=== PATIENT | male | born 1950 | race Caucasian/White ===

== ENCOUNTER 2021-11-12 00:25 | Inpatient (IN) | payer OTHER, MEDICARE, SELFPAY ==
[~2021-11-12] VITALS: Ht 182.9 cm; Wt 113.4 kg
[2021-11-12 00:25] VITALS: BP_SYST 174
[2021-11-12] MEDS ORDERED: DIPHENHYDRAMINE INJ 50 MG/ML VIAL IM ONE (00:30)
[2021-11-12] MEDS ORDERED: HALOPERIDOL LACTATE 5 MG/ML VIAL IM ONE (00:30)
--- NOTE | 2021-11-12 01:25 | NUR ---
Patient still in the ambulance with BLS crew, awaiting available bed. Per report, patient started to be calm and cooperates with staff.
[2021-11-12 02:04] LABS: ANION GAP 13 (5-15); CALCIUM 8.5 mg/dL (8.4-11.0); CHLORIDE 102 mmol/L (98-107); CREATININE 1.12 mg/dL (0.55-1.30); GLUCOSE 369 mg/dL (70-99); POTASSIUM 3.3 mmol/L (3.5-5.1); SODIUM SERUM 140 mmol/L (136-145); UREA NITROGEN, BLOOD 16 mg/dL (8-21)
[2021-11-12 02:08] LABS: ALANINE AMINOTRANSFERASE 148 U/L (12-78); ALBUMIN 3.6 g/dL (3.4-4.8); ASPARTATE AMINOTRANSFERASE 66 U/L (10-37); TOTAL BILIRUBIN 0.2 mg/dL (0.0-1.0)
[2021-11-12 02:37] LABS: BASOPHILS % (AUTO) 0.6 % (0.0-2.0); EOSINOPHILS # (AUTO) 0.1 K/uL (0.0-0.4); EOSINOPHILS % (AUTO) 1.5 % (0.0-4.0); HEMATOCRIT 42.4 % (36-54); HEMOGLOBIN 14.3 g/dL (14.0-18.0); LYMPHOCYTES # (AUTO) 0.7 K/uL (1.0-5.5); LYMPHOCYTES % (AUTO) 12.6 % (20.5-51.5); MEAN CORPUSCULAR HEMOGLOBIN 31 pg (27-31); MEAN CORPUSCULAR HGB CONC 34 % (32-36); MEAN CORPUSCULAR VOLUME 93 fL (79.0-98.0); MONOCYTES # (AUTO) 0.5 K/uL (0.0-1.0); MONOCYTES % (AUTO) 9.1 % (1.7-9.3); NEUTROPHILS # (AUTO) 4.1 K/uL (1.8-7.7); NEUTROPHILS % (AUTO) 76.2 % (40.0-70.0); PLATELET COUNT (AUTO) 199 K/uL (130-430); RED BLOOD CELL COUNT(AUTO) 4.55 MIL/uL (4.2-6.2); RED CELL DISTRIBUTION WIDTH 13.1 % (9.0-15.0); WHITE BLOOD COUNT (AUTO) 5.4 K/uL (4.8-10.8)
--- NOTE | 2021-11-12 03:30 | NUR ---
Patient to hallway chair. Patient is calm, breathing easy, respirations even unlabored
[2021-11-12] MEDS ORDERED: cefTRIAXone 1 GM IVPB PREMIX 50 ML IV ONE ×2 (04:00→09:51)
[2021-11-12] MEDS ORDERED: LEVOFLOXACIN IN DEXTROSE 5 % 100 ML IV ONE ×2 (04:00→09:52)
[2021-11-12] MEDS ORDERED: NACL 0.9% IV ONE (04:00)
[2021-11-12 04:01] LABS: BILIRUBIN,URINE NEGATIVE (NEGATIVE); BLOOD, URINE 1+ (NEGATIVE); CLARITY/URINE CLEAR (CLEAR); COLOR,URINE YELLOW (YELLOW); GLUCOSE,URINE 3+ (NEGATIVE); KETONES,URINE NEGATIVE (NEGATIVE); LEUKOCYTE ESTERASE ,URINE NEGATIVE (NEGATIVE); NITRITE, URINE NEGATIVE (NEGATIVE); PROTEIN URINE NEGATIVE (NEGATIVE); UROBILINOGEN,URINE 0.2 (0.2-1.0)
[2021-11-12 04:35] LABS: RBC,URINE 0-3 /HPF (0-3)
[2021-11-12 04:36] LABS: BACTERIA,URINE RARE /HPF (None Seen); MUCUS,URINE None Seen /LPF (None Seen)
--- NOTE | 2021-11-12 04:36 | NUR ---
Patient moved to bed 4 for further treatment
[2021-11-12] MEDS ORDERED: levETIRAcetam 500 MG IV PREMIX 100 ML IV ONE (05:30)
[2021-11-12] MEDS ORDERED: HYDROcodone/ACETAMIN 10-325 MG TAB PO PRN (08:00)
[2021-11-12] MEDS ORDERED: HYDROcodone/ACETAMIN 5-325 MG TAB (NORCO/ VICODIN) PO PRN (08:00)
[2021-11-12] MEDS ORDERED: LORazepam 2 MG/ML VIAL IVP PRN (08:00)
[2021-11-12] MEDS ORDERED: ONDANSETRON HCL 4 MG/2 ML VIAL IVP PRN (08:00)
[2021-11-12] MEDS ORDERED: NALOXONE HCL 0.4 MG/ML AMP (NARCAN) IVP PRN ×2 (08:00)
[2021-11-12] MEDS ORDERED: ACETAMINOPHEN 325 MG TABLET PO PRN ×2 (08:00→09:00)
--- NOTE | 2021-11-12 09:29 | NUR ---
PATIENT IN GURNEY ALERT, ORIENTED X4 DENIES SOB, CP, SAFETY MAINTAINED VITAL STABLE WILL CONTINUE TO MONITOR.
[2021-11-12] MEDS ORDERED: NORMAL SALINE 5 ML DISP.SYRIN IVF SCH (14:00)
[2021-11-12] MEDS: NORMAL SALINE 5 ML DISP.SYRIN IVF SCH ×2 (14:00→22:52)
[2021-11-12] MEDS ORDERED: INSULIN REGULAR, HUMAN 100 UNITS/ML, 10 ML VIAL (humuLIN R) SUBCUT PRN (14:30)
--- NOTE | 2021-11-12 14:50 | NUR ---
Patient resting quietly. No acute distress noted. Vital signs within normal range. FOOD GIVEN TOLERATED WELL NO NAUSEA VOMITING.
[2021-11-12 17:32] VITALS: BP_SYST 156
--- NOTE | 2021-11-12 17:35 | NUR ---
Patient resting quietly. No acute distress noted. Vital signs within normal range. VITAL STABLE ALERT, ORIENTED X4 AMBULATORY WITH STEADY GAIT NEURO CHECK INTACT.
[2021-11-12] MEDS ORDERED: INSULIN REGULAR, HUMAN 10 UNITS/0.1 ML INJ ONE (17:59)
[2021-11-12] MEDS ORDERED: hydrALAZINE HCL 20 MG/ML VIAL IVP ONE (23:00)
[2021-11-12] MEDS ORDERED: hydrALAZINE HCL 20 MG/ML VIAL ONE (23:04)
[2021-11-12] MEDS ORDERED: LORazepam 2 MG/ML VIAL ONE (23:41)
[2021-11-13] MEDS ORDERED: lisinopriL 20 MG TABLET PO SCH (04:30)
[2021-11-13 04:56] LABS: BASOPHILS # (AUTO) 0.1 K/uL (0.0-0.2); BASOPHILS % (AUTO) 0.6 % (0.0-2.0); EOSINOPHILS # (AUTO) 0.1 K/uL (0.0-0.4); EOSINOPHILS % (AUTO) 0.7 % (0.0-4.0); HEMATOCRIT 42.3 % (36-54); HEMOGLOBIN 14.3 g/dL (14.0-18.0); LYMPHOCYTES # (AUTO) 1.4 K/uL (1.0-5.5); LYMPHOCYTES % (AUTO) 16.1 % (20.5-51.5); MEAN CORPUSCULAR HEMOGLOBIN 31 pg (27-31); MEAN CORPUSCULAR HGB CONC 34 % (32-36); MEAN CORPUSCULAR VOLUME 93 fL (79.0-98.0); MONOCYTES # (AUTO) 0.7 K/uL (0.0-1.0); MONOCYTES % (AUTO) 8.3 % (1.7-9.3); NEUTROPHILS # (AUTO) 6.6 K/uL (1.8-7.7); NEUTROPHILS % (AUTO) 74.3 % (40.0-70.0); PLATELET COUNT (AUTO) 226 K/uL (130-430); RED BLOOD CELL COUNT(AUTO) 4.54 MIL/uL (4.2-6.2); RED CELL DISTRIBUTION WIDTH 13.1 % (9.0-15.0); WHITE BLOOD COUNT (AUTO) 8.9 K/uL (4.8-10.8)
[2021-11-13 05:15] LABS: ALANINE AMINOTRANSFERASE 142 U/L (12-78); ALBUMIN 3.7 g/dL (3.4-4.8); ANION GAP 11 (5-15); ASPARTATE AMINOTRANSFERASE 66 U/L (10-37); CALCIUM 8.9 mg/dL (8.4-11.0); CHLORIDE 103 mmol/L (98-107); CREATININE 0.89 mg/dL (0.55-1.30); GLUCOSE 195 mg/dL (70-99); POTASSIUM 3.5 mmol/L (3.5-5.1); SODIUM SERUM 139 mmol/L (136-145); TOTAL BILIRUBIN 0.6 mg/dL (0.0-1.0); UREA NITROGEN, BLOOD 12 mg/dL (8-21)
[2021-11-13] MEDS ORDERED: ACETAMINOPHEN 325 MG TABLET ONE ×2 (05:29→06:44)
[2021-11-13] MEDS ORDERED: LISINOPRIL 10 MG TABLET (PRINIVIL) ONE (05:30)
[2021-11-13] MEDS: NORMAL SALINE 5 ML DISP.SYRIN IVF SCH (06:48)
[2021-11-13] MEDS ORDERED: ONDANSETRON HCL 4 MG/2 ML VIAL ONE (06:54)
--- NOTE | 2021-11-13 08:25 | NUR ---
Patient does not wish to proceed with medical care recommended by DR BERNAL. Patient given information related to possible complications, up to and including , which could occur as a result of leaving hospital at this time. Patient verbalizes understanding of risks involved leaving against medical advice. Patient has signed AMA form.
[2021-11-13] MEDS ORDERED: HYDROCHLOROTHIAZIDE 25 MG TABLET (HCTZ) PO ONE (11:30)
[2021-11-13] MEDS ORDERED: LISINOPRIL 10 MG TABLET (PRINIVIL) PO ONE (11:30)
[2021-11-14] MEDS ORDERED: LISINOPRIL 10 MG TABLET (PRINIVIL) PO SCH (09:00)
[2021-11-14] MEDS ORDERED: HYDROCHLOROTHIAZIDE 25 MG TABLET (HCTZ) PO SCH (09:00)
== END 2021-11-13 08:24 | disposition left against medical advice (07) | DRG 948 ==
LOC: SED 00:25 → SMU 05:30
PROVIDERS: ADMIT Preventive Medicine Preventive Medicine/Occupational Environmental Medicine; ATTEND Preventive Medicine Preventive Medicine/Occupational Environmental Medicine
DX: R41.82 Altered mental status, unspecified (principal); E87.6 Hypokalemia; I10 Essential (primary) hypertension; R74.01 Elevation of levels of liver transaminase levels; Z20.822 Contact with and (suspected) exposure to COVID-19; E11.65 Type 2 diabetes mellitus with hyperglycemia; Z88.2 Allergy status to sulfonamides; Z88.8 Allergy status to other drugs, medicaments and biological substances; Z91.041 Radiographic dye allergy status; Z79.899 Other long term (current) drug therapy
CPT/HCPCS: 36415; 70450-TC; 71045; 76376; 80053; 81000; 82962; 83605; 83735; 84100; 85025; 87040; 93880; 96365; 96368; 99291; J0360; J0696; J1200; J1630; J1815; J1953; J1956; J2060; J2405